=== PATIENT | female | born 1995 | race African-American/Black ===

== ENCOUNTER 2019-12-03 08:49 | Emergency (ER) | payer MEDICAID ==
[~2019-12-03] VITALS: Ht 162.6 cm; Wt 73.0 kg
[2019-12-03 09:00] VITALS: BP 108/75
[2019-12-03] MEDS ORDERED: ACETAMINOPHEN 500MG TABLET PO ONE (10:15)
== END 2019-12-03 11:15 | disposition home or self-care (01) ==
LOC: ER 08:49
DX: S82.201E Unspecified fracture of shaft of right tibia, subsequent encounter for open fracture type I or II with routine healing (principal); S82.401E Unspecified fracture of shaft of right fibula, subsequent encounter for open fracture type I or II with routine healing; S82.291B Other fracture of shaft of right tibia, initial encounter for open fracture type I or II; S82.491B Other fracture of shaft of right fibula, initial encounter for open fracture type I or II; V49.49XA Driver injured in collision with other motor vehicles in traffic accident, initial encounter; Y93.89 Activity, other specified; Y92.89 Other specified places as the place of occurrence of the external cause; Y99.8 Other external cause status
CPT/HCPCS: 99283